=== PATIENT | male | born 1980 | race African-American/Black ===

== ENCOUNTER 2018-01-05 15:07 | Emergency (ER) | payer OTHER ==
[~2018-01-05] VITALS: Ht 182.9 cm; Wt 104.3 kg
[~2018-01-05 15:07] MED LIST: FLEXERIL 10 MG PO; [UNRECOGNIZED DRUG - OTHER] PO
== END 2018-01-05 16:40 | disposition home or self-care (01) ==
LOC: ER 15:07
DX: S60.011A Contusion of right thumb without damage to nail, initial encounter (principal); X50.0XXA Overexertion from strenuous movement or load, initial encounter; Y93.89 Activity, other specified; Y92.89 Other specified places as the place of occurrence of the external cause; Y99.8 Other external cause status

== ENCOUNTER 2018-07-18 14:58 | Outpatient (CLI) | payer OTHER | END 2018-07-18 14:59 | disposition home or self-care (01) | LOC: RAD 14:58 | DX: R07.89 Other chest pain (principal) ==

== ENCOUNTER 2019-01-23 16:12 | Outpatient (CLI) | payer OTHER | END 2019-01-23 16:21 | disposition home or self-care (01) | LOC: LAB 16:12 | DX: J11.1 Influenza due to unidentified influenza virus with other respiratory manifestations (principal) ==

== ENCOUNTER 2019-01-27 10:17 | Outpatient (CLI) | payer OTHER | END 2019-01-27 13:10 | disposition home or self-care (01) | LOC: SONOGRAMA 10:17 | DX: R22.1 Localized swelling, mass and lump, neck (principal) ==

== ENCOUNTER 2019-01-28 06:43 | Outpatient (CLI) | payer OTHER | END 2019-01-28 15:00 | disposition home or self-care (01) | LOC: LAB 06:43 | DX: E78.49 Other hyperlipidemia (principal); Z00.00 Encounter for general adult medical examination without abnormal findings; E55.9 Vitamin D deficiency, unspecified; R42 Dizziness and giddiness; Z11.4 Encounter for screening for human immunodeficiency virus [HIV]; Z11.3 Encounter for screening for infections with a predominantly sexual mode of transmission ==

== ENCOUNTER 2019-03-27 06:26 | Outpatient (CLI) | payer OTHER | END 2019-03-27 07:06 | disposition home or self-care (01) | LOC: LAB 06:26 | DX: E03.8 Other specified hypothyroidism (principal) ==

== ENCOUNTER 2019-06-25 06:51 | Outpatient (CLI) | payer OTHER | END 2019-06-25 06:57 | disposition home or self-care (01) | LOC: LAB 06:51 | DX: E03.8 Other specified hypothyroidism (principal) ==

== ENCOUNTER 2019-10-06 06:11 | Outpatient (CLI) | payer OTHER | END 2019-10-07 06:33 | disposition home or self-care (01) | LOC: LAB 06:11 | PROVIDERS: ATTEND Internal Medicine Endocrinology, Diabetes & Metabolism | DX: E06.3 Autoimmune thyroiditis (principal) ==

== ENCOUNTER 2019-10-30 09:54 | Outpatient (CLI) | payer OTHER | END 2019-10-30 10:24 | disposition home or self-care (01) | LOC: RAD 09:54 | DX: M25.542 Pain in joints of left hand (principal); M79.645 Pain in left finger(s) ==

== ENCOUNTER 2020-02-15 06:07 | Outpatient (CLI) | payer OTHER | END 2020-02-15 15:00 | disposition home or self-care (01) | LOC: LAB 06:07 | PROVIDERS: ATTEND Internal Medicine Endocrinology, Diabetes & Metabolism | DX: E03.8 Other specified hypothyroidism (principal) ==

== ENCOUNTER 2020-06-22 06:12 | Outpatient (CLI) | payer OTHER | END 2020-06-22 06:16 | disposition home or self-care (01) | LOC: LAB 06:12 | PROVIDERS: ATTEND Internal Medicine Endocrinology, Diabetes & Metabolism | DX: E06.3 Autoimmune thyroiditis (principal); E78.89 Other lipoprotein metabolism disorders ==

== ENCOUNTER 2020-09-23 08:00 | Outpatient (CLI) | payer OTHER | END 2020-09-23 08:30 | disposition home or self-care (01) | LOC: PPH VACUNA 08:00 | DX: Z23 Encounter for immunization (principal) ==

== ENCOUNTER 2020-10-14 08:00 | Outpatient (CLI) | payer OTHER | END 2020-10-14 08:30 | disposition home or self-care (01) | LOC: PPH VACUNA 08:00 | DX: Z23 Encounter for immunization (principal) ==

== ENCOUNTER 2020-11-08 06:03 | Outpatient (CLI) | payer OTHER | END 2020-11-08 06:13 | disposition home or self-care (01) | LOC: LAB 06:03 | PROVIDERS: ATTEND Internal Medicine Endocrinology, Diabetes & Metabolism | DX: E03.8 Other specified hypothyroidism (principal) ==

== ENCOUNTER 2020-11-08 14:11 | Outpatient (CLI) | payer OTHER | END 2020-11-08 14:17 | disposition home or self-care (01) | LOC: SONOGRAMA 14:11 | PROVIDERS: ATTEND Internal Medicine Endocrinology, Diabetes & Metabolism | DX: E04.8 Other specified nontoxic goiter (principal) ==

== ENCOUNTER 2021-01-02 08:09 | Outpatient (CLI) | payer OTHER | END 2021-01-02 16:55 | disposition home or self-care (01) | LOC: LAB 08:09 | PROVIDERS: ATTEND Emergency Medicine Pediatric Emergency Medicine | DX: Z03.818 Encounter for observation for suspected exposure to other biological agents ruled out (principal) ==

== ENCOUNTER 2021-02-01 08:00 | Outpatient (CLI) | payer OTHER | END 2021-02-01 08:30 | disposition home or self-care (01) | LOC: PPH VACUNA 08:00 → EDBD 08:00 → PPH VACUNA 08:30 | PROVIDERS: ATTEND Emergency Medicine Pediatric Emergency Medicine | DX: Z23 Encounter for immunization (principal) ==

== ENCOUNTER 2021-04-04 08:00 | Outpatient (CLI) | payer OTHER | END 2021-04-04 08:30 | disposition home or self-care (01) | LOC: PPH VACUNA 08:00 | PROVIDERS: ATTEND Emergency Medicine Pediatric Emergency Medicine | DX: Z23 Encounter for immunization (principal) ==

== ENCOUNTER 2021-08-03 06:47 | Outpatient (CLI) | payer OTHER | END 2021-08-03 15:43 | disposition home or self-care (01) | LOC: EDBD 06:47 → LAB 06:47 | PROVIDERS: ATTEND Internal Medicine Endocrinology, Diabetes & Metabolism | DX: E03.8 Other specified hypothyroidism (principal); E78.00 Pure hypercholesterolemia, unspecified ==

== ENCOUNTER 2021-09-16 17:53 | Emergency (ER) | payer OTHER ==
[~2021-09-16] VITALS: Ht 182.9 cm; Wt 95.3 kg
[2021-09-16] MEDS ORDERED: SYNTHROID88 MCG PO (18:13)
== END 2021-09-16 20:56 | disposition home or self-care (01) ==
LOC: ER 17:53
DX: U07.1 COVID-19 (principal); E03.9 Hypothyroidism, unspecified

== ENCOUNTER 2021-12-13 08:00 | Outpatient (CLI) | payer OTHER ==
[~2021-12-13 08:00] MED LIST changes: +SYNTHROID88 MCG PO
== END 2021-12-13 08:05 | disposition home or self-care (01) ==
LOC: PPH VACUNA 08:00
PROVIDERS: ATTEND Emergency Medicine Pediatric Emergency Medicine
DX: Z23 Encounter for immunization (principal)

== ENCOUNTER → 2022-02-08 06:11 | Outpatient (CLI) | payer OTHER | END | disposition home or self-care (01) | LOC: LAB 06:11 | PROVIDERS: ATTEND Internal Medicine Endocrinology, Diabetes & Metabolism | DX: E03.8 Other specified hypothyroidism (principal); E78.00 Pure hypercholesterolemia, unspecified ==

== ENCOUNTER 2022-02-27 06:25 | Outpatient (CLI) | payer OTHER | END 2022-02-27 06:26 | disposition home or self-care (01) | LOC: LAB 06:25 | PROVIDERS: ATTEND General Practice | DX: Z00.00 Encounter for general adult medical examination without abnormal findings (principal); E78.5 Hyperlipidemia, unspecified; E55.9 Vitamin D deficiency, unspecified; N39.0 Urinary tract infection, site not specified; R10.9 Unspecified abdominal pain; Z12.5 Encounter for screening for malignant neoplasm of prostate ==

== ENCOUNTER → 2022-05-11 06:31 | Outpatient (CLI) | payer OTHER | END | disposition home or self-care (01) | LOC: LAB 06:31 | PROVIDERS: ATTEND Internal Medicine Endocrinology, Diabetes & Metabolism | DX: E03.8 Other specified hypothyroidism (principal) ==

== ENCOUNTER 2022-11-12 06:45 | Outpatient (CLI) | payer OTHER | END 2022-11-12 06:48 | disposition home or self-care (01) | LOC: LAB 06:45 | PROVIDERS: ATTEND Internal Medicine Endocrinology, Diabetes & Metabolism | DX: E03.8 Other specified hypothyroidism (principal) ==

== ENCOUNTER 2022-12-28 09:52 | Outpatient (CLI) | payer OTHER | END 2022-12-28 10:02 | disposition home or self-care (01) | LOC: PPH VACUNA 09:52 | PROVIDERS: ATTEND Emergency Medicine Pediatric Emergency Medicine | DX: Z23 Encounter for immunization (principal) ==

== ENCOUNTER 2023-02-12 12:28 | Outpatient (CLI) | payer OTHER | END 2023-02-12 12:36 | disposition home or self-care (01) | LOC: LAB 12:28 | PROVIDERS: ATTEND Anesthesiology | DX: B19.10 Unspecified viral hepatitis B without hepatic coma (principal); Z20.820 Contact with and (suspected) exposure to varicella ==

== ENCOUNTER 2023-03-13 06:41 | Outpatient (CLI) | payer OTHER ==
[2023-03-13 08:58] LABS: T4 FREE 0.92 NG/ML (0.76-1.46)
[2023-03-13 08:59] LABS: TSH 5.61 uIU/mL (0.358-3.74)
== END 2023-03-13 23:00 | disposition home or self-care (01) ==
LOC: LAB 06:41
PROVIDERS: ATTEND Internal Medicine Endocrinology, Diabetes & Metabolism
DX: E03.8 Other specified hypothyroidism (principal)

== ENCOUNTER → 2023-07-01 06:43 | Outpatient (CLI) | payer OTHER ==
[2023-07-01 08:51] LABS: T4 FREE 1.07 NG/ML (0.76-1.46); TSH 3.39 uIU/mL (0.358-3.74)
== END | disposition home or self-care (01) ==
LOC: LAB 06:43
PROVIDERS: ATTEND Internal Medicine Endocrinology, Diabetes & Metabolism
DX: E03.8 Other specified hypothyroidism (principal)

== ENCOUNTER 2023-10-02 10:36 | Outpatient (CLI) | payer OTHER | END 2023-10-02 10:43 | disposition home or self-care (01) | LOC: SONOGRAMA 10:36 | PROVIDERS: ATTEND Internal Medicine Endocrinology, Diabetes & Metabolism | DX: E04.8 Other specified nontoxic goiter (principal) ==

== ENCOUNTER 2023-10-03 06:14 | Outpatient (CLI) | payer OTHER ==
[2023-10-03 07:58] LABS: ALBUMIN 4.1 gm/dL (3.4-5.0); BILIRUBIN TOTAL 0.43 mg/dL (0.3-1.2); CALCIUM 9.4 mg/dL (8.5-10.1); CREATININE SERUM 1.13 mg/dL (0.70-1.30); GFR 71.87; GLOBULINA 3.9 G/DL (2.4-3.5); POTASSIUM 4.66 mEq/L (3.5-5.1); T4 FREE 0.94 NG/ML (0.76-1.46)
[2023-10-03 08:22] LABS: TSH 4.85 uIU/mL (0.358-3.74)
== END 2023-10-03 06:19 | disposition home or self-care (01) ==
LOC: LAB 06:14
PROVIDERS: ATTEND Internal Medicine Endocrinology, Diabetes & Metabolism
DX: E03.8 Other specified hypothyroidism (principal)

== ENCOUNTER 2024-02-03 06:18 | Outpatient (CLI) | payer OTHER ==
[2024-02-03 08:39] LABS: CHOL HDL RATIO 2.5 (0-5.0); T4 FREE 0.93 NG/ML (0.76-1.46); TSH 3.65 uIU/mL (0.358-3.74)
== END 2024-02-03 06:22 | disposition home or self-care (01) ==
LOC: LAB 06:18
PROVIDERS: ATTEND Internal Medicine Endocrinology, Diabetes & Metabolism
DX: E03.8 Other specified hypothyroidism (principal); E78.00 Pure hypercholesterolemia, unspecified

== ENCOUNTER 2024-04-07 11:17 | Outpatient (CLI) | payer OTHER ==
[2024-04-09 12:38] LABS: HEPATITIS A ANTIBODY IGG Negative (Negative); HEPATITIS B SURFACE ANTIBODY Reactive (.); HEPATITIS C VIRUS ANTIBODY Non Reactive (Non Reactive)
== END 2024-04-07 15:14 | disposition home or self-care (01) ==
LOC: LAB 11:17
DX: A64 Unspecified sexually transmitted disease (principal); B19.9 Unspecified viral hepatitis without hepatic coma

== ENCOUNTER 2024-06-01 07:52 | Outpatient (CLI) | payer OTHER ==
[2024-06-02 23:04] LABS: chla t Negative (Negative); neiss Negative (Negative)
== END 2024-06-01 07:57 | disposition home or self-care (01) ==
LOC: LAB 07:52
PROVIDERS: ATTEND Surgery
DX: A64 Unspecified sexually transmitted disease (principal); Z11.3 Encounter for screening for infections with a predominantly sexual mode of transmission

== ENCOUNTER 2024-08-05 06:08 | Outpatient (CLI) | payer OTHER ==
[2024-08-05 08:11] LABS: ALBUMIN 4.1 gm/dL (3.4-5.0); BILIRUBIN TOTAL 0.56 mg/dL (0.3-1.2); CALCIUM 8.7 mg/dL (8.5-10.1); CHOL HDL RATIO 2.9 (0-5.0); CREATININE SERUM 1.09 mg/dL (0.70-1.30); GFR 74.55; GLOBULINA 3.8 G/DL (2.4-3.5); POTASSIUM 4.09 mEq/L (3.5-5.1); T4 FREE 1.01 NG/ML (0.76-1.46); TOTAL PROTEIN 7.9 gm/dL (6.4-8.2); TSH 3.19 uIU/mL (0.358-3.74)
== END 2024-08-05 06:12 | disposition home or self-care (01) ==
LOC: LAB 06:08
PROVIDERS: ATTEND Internal Medicine Endocrinology, Diabetes & Metabolism
DX: E78.5 Hyperlipidemia, unspecified (principal); E03.8 Other specified hypothyroidism; E11.65 Type 2 diabetes mellitus with hyperglycemia

== ENCOUNTER 2025-01-15 11:22 | Outpatient (CLI) | payer OTHER | END 2025-01-15 11:32 | disposition home or self-care (01) | LOC: PPH VACUNA 11:22 | PROVIDERS: ATTEND Emergency Medicine Pediatric Emergency Medicine | DX: Z23 Encounter for immunization (principal) ==

== ENCOUNTER → 2025-03-12 06:28 | Outpatient (CLI) | payer OTHER ==
[2025-03-12 08:26] LABS: ALT/SGPT 38.0 U/L (12-78); AST/SGOT 26.0 U/L (15-37); BILIRUBIN TOTAL 0.34 mg/dL (0.3-1.2); BUN CREA RATIO 18.0 (7.0-25.0); CHOL HDL RATIO 3.0 (0-5.0); CREATININE SERUM 1.2 mg/dL (0.70-1.30); GFR 66.4; GLOBULINA 3.8 G/DL (2.4-3.5); GLUCOSE FASTING 93.0 mg/dL (65-100); HDL 50.0 mg/dl (40-60); LDL 83.0 mg/dl (0-130); OSMOLALITY SERUM 286.0 MOSM/KG (275-295); T4 FREE 1.01 NG/ML (0.76-1.46); VLDL 17.0 (0-39)
[2025-03-12 08:30] LABS: TSH 6.0 uIU/mL (0.358-3.74)
== END | disposition home or self-care (01) ==
LOC: LAB 02-17 08:27
PROVIDERS: ATTEND Internal Medicine Endocrinology, Diabetes & Metabolism
DX: E11.65 Type 2 diabetes mellitus with hyperglycemia (principal); E78.00 Pure hypercholesterolemia, unspecified; E03.8 Other specified hypothyroidism